=== PATIENT | female | born 1980 | race Caucasian/White ===

== ENCOUNTER → 2016-12-25 | Outpatient (CLI) | payer MEDICAID ==
[~2016-12-25] MED LIST: APRISO; APRISO0.375 GM PO; LAMISIL250 MG PO; ZOFRAN4 MG PO; ZOLOFT100 MG PO
[2016-12-25 10:42] LABS: CREATININE 0.7 mg/dL (0.5-1.1)
[2016-12-25 10:47] LABS: ESTIMATED GFR (MDRD EQUATION) > 60
== END | disposition disaster alternative care site (69) ==
LOC: GLAB 12-05 13:00 → GRAD 12-05 13:00
PROVIDERS: Internal Medicine Gastroenterology
DX: K50.90 Crohn's disease, unspecified, without complications (principal); K63.89 Other specified diseases of intestine; R10.9 Unspecified abdominal pain; Z90.49 Acquired absence of other specified parts of digestive tract
CPT/HCPCS: Q9967